=== PATIENT | male | born 1935 | race Caucasian/White ===

== ENCOUNTER → 2021-04-08 | Outpatient (CLI) | payer OTHER | LOC: MRI 08:02 | PROVIDERS: ATTEND Psychiatry & Neurology Neuromuscular Medicine | DX: G31.89 Other specified degenerative diseases of nervous system (principal); I67.82 Cerebral ischemia; F03.90 Unspecified dementia, unspecified severity, without behavioral disturbance, psychotic disturbance, mood disturbance, and anxiety; Z86.79 Personal history of other diseases of the circulatory system; Z79.01 Long term (current) use of anticoagulants ==